=== PATIENT | female | born 1975 | race Two or more races ===

== ENCOUNTER → 2025-01-23 | Outpatient (CLI) | payer MEDICAID, SELFPAY ==
--- NOTE | 2025-01-23 11:30 | XR_ITS ---
Examination: Pelvic ultrasound, transabdominal, complete Technique: Transabdominal ultrasound of the pelvis performed using grayscale imaging Date and time of exam: January 23, 2025 1241 hours INDICATIONS: CT examination 05/20/2023 25 mm hypodense mass in the cervix FINDINGS: Uterus 9.1 cm endometrial stripe 1.1 cm No uterine mass Cervix is partially visualized secondary to bowel gas Right ovary 2.4 cm arterial flow Left ovary 2.0 cm arterial flow IMPRESSION: Limited study, recommend transvaginal pelvic sonography to diagnostically assess the cervix
== END | disposition home or self-care (01) ==
PROVIDERS: PCP Nurse Practitioner Family; Referring Provider Nurse Practitioner Family; Visit Provider Nurse Practitioner Family
DX: R10.2 Pelvic and perineal pain (principal)
CPT/HCPCS: 76856

== ENCOUNTER 2025-08-21 10:39 | Emergency (ER) | payer MEDICAID, SELFPAY ==
[2025-08-21] VITALS (7 sets, daily range): BP systolic 119–145; BP diastolic 75–85; PULSE 72–95; RESP 16–20; TEMP 36.8–37.4; O2SAT 94–100; BMI 36.9
--- NOTE | 2025-08-21 11:00 | XR_ITS ---
Examination: Pelvic ultrasound, transabdominal, complete Technique: Transabdominal ultrasound of the pelvis performed using grayscale imaging Date and time of exam: August 21, 2025, 1119 hours INDICATIONS: Postmenopausal vaginal bleeding today with pain FINDINGS: Uterus 9.8 cm endometrial stripe 0.7 cm Right ovary 2.3 cm arterial flow Left ovary 2.8 cm arterial flow, 20 x 16 x 15 mm cyst No fluid in the cul-de-sac IMPRESSION: Left ovarian simple cyst 20 x 16 x 15 mm
--- NOTE | 2025-08-21 11:02 | PD.EDRME ---
Rapid Medical Screening Exam E Arrival date/time: 08/21/25 10:39 49-year-old female with no known medical history presents to the emergency room with a chief complaint of vaginal bleeding and suprapubic abdominal pain x 3 days I have greeted and performed a focused initial assessment of this patient. A comprehensive ED assessment and evaluation of the patient, analysis of all test results, and completion of the medical decision making process will be conducted by additional ED providers. Chief Complaint: Abdominal Pain Time Seen by Provider: 08/21/25 10:56 Vital signs: Vital Signs Temperature 99.3 F 08/21/25 10:47 Pulse Rate 95 08/21/25 10:47 Respiratory Rate 18 08/21/25 10:47 Blood Pressure 135/79 H 08/21/25 10:47 Pulse Oximetry (%) 94 L 08/21/25 10:47 Oxygen Delivery Method Room Air 08/21/25 10:47 Vital signs reviewed by provider: Yes Exam: Tenderness with palpation under the umbilicus. No right lower quadrant or left lower quadrant abdominal tenderness Clear bilateral lung sounds Clinical Impression: Vaginal bleeding
[2025-08-21 11:27] LABS: Basophils # (Auto) 0.0 Thou/mm3 (0.0-0.2); Basophils % (Auto) 1 % (0-2.5); Eosinophils # (Auto) 0.4 Thou/mm3 (0.0-0.5); Eosinophils % (Auto) 7 % (0-10); Hematocrit 39.7 % (36.0-46.0); Hemoglobin 12.8 g/dL (12.0-16.0); Immature Granulocytes Auto 0.04 Thou/mm3 (0.00-0.00); Lymphocytes # (Auto) 1.5 Thou/mm3 (1.0-4.8); Lymphocytes % (Auto) 28 % (10-50); Mean Corpuscular HGB Conc 32.2 g/dl (31.0-37.0); Mean Corpuscular Hemoglobin 27.6 pg (25.0-35.0); Mean Corpuscular Volume 86 fL (80-100); Monocytes # (Auto) 0.5 Thou/mm3 (0.0-0.8); Monocytes % (Auto) 9 % (0-12); Neutrophils # (Auto) 2.9 Thou/mm3 (1.8-7.7); Neutrophils % (Auto) 55 % (37-80); Nucleated Red Blood Cell # 0.00 Thou/mm3 (0.00-0.00); Nucleated Red Blood Cell % 0 /100 WBC (0); Platelet Count 350 Thou/mm3 (140-440); RDW Standard Deviation 42.9 fL (36.4-46.3); Red Blood Count 4.63 Miln/mm3 (4.00-5.20); White Blood Count 5.3 Thou/mm3 (3.6-11.0)
[2025-08-21 11:42] LABS: Collection Type, Urine Clean Catch
[2025-08-21 11:47] LABS: Alanine Aminotransferase 20 U/L (10-49); Albumin, Serum 4.7 gm/dL (3.5-5.0); Albumin/Globulin Ratio 1.2 (1.2-2.2); Alkaline Phosphatase 102 U/L (46-116); Anion Gap 11 (7-16); Aspartate Amino Transferase 27 U/L (0-34); BUN/Creatinine Ratio 11 Ratio (12-20); Bilirubin,Total 0.5 mg/dL (0.3-1.2); Blood Urea Nitrogen 9 mg/dL (9-23); Calcium 9.1 mg/dL (8.3-10.6); Calcium (Corrected) 9.1 mg/dL (8.5-10.1); Carbon Dioxide 25.9 mMol/L (20.0-31.0); Chloride 106 mMol/L (98-107); Creatinine (Component) 0.8 mg/dL (0.6-1.3); Estimated Creatinine Clearance 87.6 mL/min (>60); Globulin 3.9 gm/dL (2.3-3.5); Glucose 99 mg/dL (74-106); Osmolality,Calculated 283 (275-295); Potassium 3.4 mMol/L (3.4-5.1); Sodium 143 mMol/L (136-145); Total Protein 8.6 gm/dL (5.7-8.2); eGFR > 60 See Note
[2025-08-21 12:02] LABS: Bilirubin,Urine Negative (Negative); Blood,Urine 2+ (Negative); Clarity,Urine Clear (Clear/Hazy); Color,Urine Colorless (Lt Yel-Yel); Culture Indicated,Urine Not Indicated; Glucose, Urine Negative (Negative); Ketones,Urine Negative (Negative); Leukocyte Esterase,Urine Negative (Negative); Nitrite,Urine Negative (Negative); PH,Urine 6.5 (5.0-7.0); Protein,Urine Negative (Neg - Trace); RBC,Urine 2 /hpf (0-3); Specific Gravity,Urine 1.005 (1.001-1.035); Squamous Epithelial Cell,Urine 3 /hpf (0-5); Urobilinogen,Urine Negative mg/dL (0.0-1.0); WBC,Urine 1 /hpf (0-5)
[2025-08-21 12:07] LABS: HCG Qualitative,Urine Negative
--- NOTE | 2025-08-21 12:51 | PC.NURSE ---
Pt came to ED for complaints of lower abdominal pain that radiates to the lower back, pain is burning sensation, 7/10 pain, denies any N/V/D. Symptoms started approx a week ago, pt stated after no period for 2 years she had her period that started yesterday, blood is small amount with clots. Pt is alert and oriented, VSS. Awating provider to see.
[2025-08-21 13:06] LABS: INR 1.0 (0.9-1.3); Partial Thromboplastin Time 29.6 Seconds (22.0-36.0); Prothrombin Time 10.9 Seconds (9.0-12.2)
--- NOTE | 2025-08-21 13:08 | EDNOTE_ITS ---
ED Abdominal Pain RME/HPI General Chief Complaint: Abdominal Pain Stated complaint: LLQ ABD PAIN RADIATING TO BACK 04/15 Time seen by provider: 08/21/25 10:56 Arrival date/time: 08/21/25 10:39 RME / HPI RME / HPI narrative: 08/21/25 10:39 49-year-old female with no known medical history presents to the emergency room with a chief complaint of vaginal bleeding and suprapubic abdominal pain x 3 days I have greeted and performed a focused initial assessment of this patient. A comprehensive ED assessment and evaluation of the patient, analysis of all test results, and completion of the medical decision making process will be conducted by additional ED providers. DR. JUAREZ MAIN ED EVALUATION 49 year old female with history of kidney stones otherwise no other stated chronic medical history presents to the ED for evaluation of pelvic pain that wraps around to her lower back beginning 1 week ago. Described as aching in sensation, rated as moderate. States the pain is noted to be worse after urinating. Accompanied by vaginal bleeding, amount is very light and spotty, that began yesterday. Denies any dysuria, hematuria, or foul odor. Denies vaginal discharge or itching. Denies any changes in bowel habits. No known modifying factors. Exam: Tenderness with palpation under the umbilicus. No right lower quadrant or left lower quadrant abdominal tenderness Clear bilateral lung sounds Impression: Vaginal bleeding Related Data Home Medications ?Medication ?Instructions ?Recorded ?Confirmed Nitrofurantoin Macrocrystals SR * 100 mg PO BID #0 cap s 06/15/17 (MACROBID *) dicyclomine 10 mg capsule (Bentyl) 10 mg PO BID PRN AB DOMINAL PAIN #0 06/15/17 caps Previous Rx's ?Medication ?Instructions ?Recorded ibuprofen 800 mg tablet 800 mg PO TID PRN pain #30 t abs 05/20/23 tamsulosin 0.4 mg capsule (Flomax) 0.4 mg PO QDAY #10 caps 05/20/23 hydrocodone 5 mg-acetaminophen 300 1 tab PO QDAY #5 ta bs 08/21/25 mg tablet ibuprofen 800 mg tablet 800 mg PO Q8H PRN pain #14 t abs 08/21/25 naloxone 4 mg/actuation nasal 4 mg intranasal Q2M PRN opioid 08/21/25 spray (Narcan) overdose #2 ea tamsulosin 0.4 mg capsule 0.4 mg PO QDAY #14 caps 08/06 02/28 Allergies Allergy/AdvReac Type Severity Reaction Status Date / Time No Known Allergies Allergy Verified 08/21/25 10:44 Review of Systems Review of Systems Systems Reviewed: All systems reviewed, normal except as documented Past Medical History Past Medical History CARDIAC: Positive Cardiac Disorders and Hypercholesterolemia GASTROINTESTINAL: Positive Gastrointestinal Disorders (gastris, H. pylori) GENITOURINARY: Positive Kidney Stones MUSCULOSKELETAL: Positive Musculoskeletal Disorders, Rheumatoid Arthritis and Fractures ENDOCRINE: Positive Diabetes Mellitus Type 2 (pre diabetic) Surgical History SURGICAL: Positive of Shoulder Sx (right arm) and Section Social History SMOKING STATUS: Never smoker ED Exam Narrative Physical exam: GENERAL APPEARANCE: alert and oriented x 4, well-developed, well-nourished, no acute distress HEENT: Normocephalic, atraumatic; pupils equal, round, reactive to light; EOMI; mucous membranes pink, moist; oropharynx clear NECK: Supple LUNGS: CTABL; no wheezes, no rales, no rhonchi HEART: Regular rate, regular rhythm; normal S1, S2; no murmurs ABDOMEN: non distended; normal BS; soft, mild suprapubic tenderness, no guarding, no rebound; no masses, no organomegaly, no hernia BACK: no CVA tenderness EXTREMITIES: atraumatic; no edema NEUROLOGIC: awake; alert and oriented x4; cranial nerves II-XII grossly intact; no focal sensory or motor deficits PSYCHIATRIC: appropriate mood and affect SKIN: warm, dry, normal color; no rashes Course Quality Measures none Orders Category Date Time Status CT Screening NOW Care 08/21/25 15:[address] abdomen pelvis w con Stat Exams 08/21/25 15:07 Completed US pelvic complete Stat Exams 08/21/25 11:00 Completed CBC Stat Lab 08/21/25 11:10 Completed CMP [Comprehensive Metabolic Panel] Stat Lab 08/21/25 11:10 Completed HCG Qualitative,Urine Stat Lab 08/21/25 11:30 Completed PT [Prothrombin Time with INR] Stat Lab 08/21/25 11:10 Completed PTT [Partial Thromboplastin Time] Stat Lab 08/21/25 11:10 Completed UA, C/S IF [Urinalysis, C/S if Indicated] Stat Lab 08/21/25 11:30 Completed HYDROcodone*/APAP 5/325 [Gorin 5/325] Med 08/21/25 15:07 Discontinued 1 tab PO X1 ONE Ketorolac Inj [Toradol Inj] Med 08/21/25 15:07 Discontinued 30 mg IM X1 ONE Vital Signs Vital signs: Vital Signs Temperature 99.3 F 08/21/25 10:47 Pulse Rate 95 08/21/25 10:47 Respiratory Rate 18 08/21/25 10:47 Blood Pressure 135/79 H 08/21/25 10:47 Pulse Oximetry (%) 94 L 08/21/25 10:47 Oxygen Delivery Method Room Air 08/21/25 10:47 Pulse ox is 94% on room air which is adequate. Abdominal Pain MDM MDM Narrative MDM Narrative:: ILashonda, marina scribing for and in the presence of Dr. Juarez. 1800: Care signed out to Dr. Wade, pending CT abdomen/pelvis and final disposition. Patient data External records reviewed:: [facility] previous records Clinical information provided by:: patient Social determinants that could affect healthcare access:: none Patient has the following chronic illnesses:: None reported How is presenting disease/condition affected by chronic disease/condition?: no chronic disease Evaluation data The following diagnostics were reviewed and interpreted by me:: lab results and radiology exam(s) Lab and/or radiology exams considered but not ordered:: None Interpretation Summary: Ordering Physician: Lio Blair Date of Service: 08/21/25 Procedure(s): US pelvic complete Accession Number(s): [id number] cc: Lio Blair; Julián Stanley MD; Prem Kelly MD~ Examination: Pelvic ultrasound, transabdominal, complete Technique: Transabdominal ultrasound of the pelvis performed using grayscale imaging Date and time of exam: August 21, 2025, 1119 hours INDICATIONS: Postmenopausal vaginal bleeding today with pain FINDINGS: Uterus 9.8 cm endometrial stripe 0.7 cm Right ovary 2.3 cm arterial flow Left ovary 2.8 cm arterial flow, 20 x 16 x 15 mm cyst No fluid in the cul-de-sac IMPRESSION: Left ovarian simple cyst 20 x 16 x 15 mm Dictated By: Julián Stanley MD Signed By: <Electronically signed by Julián Stanley MD in [place]> 08/21/25 1141 Medications / Prescriptions Medications or Prescriptions considered but not ordered:: None Medication administrations:: Medication Administration History Discontinued Medications Hydrocodone Bitart/Acetaminophen (Hydrocodone/Apap 5/325 Tablet) 1 tab PO X1 ONE Stop: 08/21/25 15:08 Last Admin: 08/21/25 15:27 Dose: 1 tab Documented By: MARK Ketorolac Tromethamine (Ketorolac Inj 30 Mg/Ml Vial) 30 mg IM X1 ONE Stop: 08/21/25 15:08 Last Admin: 08/21/25 15:28 Dose: 30 mg Documented By: MARK See above Consultations Consultation(s) initiated? (list below): No Diagnosis Differential diagnosis abdominal pain: abdominal pain, calculus of kidney and other (UTI, kidney stone) Most likely diagnosis given after review of the tests above:: Pelvic pain Admission Indicated Admission indicated?: not indicated Explain why admission is indicated or not indicated:: Signed out pending final disposition Admission Request Was there a request for admission?: No Disposition Plan Disposition Plan: other (specify) (Care signed out to Dr. Wade ) Discharge Plan Prescriptions/Referrals Prescriptions/Med Rec: New tamsulosin 0.4 mg capsule 0.4 mg PO QDAY Qty: 14 0RF ibuprofen 800 mg tablet 800 mg PO Q8H PRN (Reason: pain) Qty: 14 0RF Rx Instructions: please take with food hydrocodone-acetaminophen 5-300 mg tablet 1 tab PO QDAY MDD 1 Qty: 5 0RF naloxone [Narcan] 4 mg/actuation spray,non-aerosol 4 mg intranasal Q2M PRN (Reason: opioid overdose) Qty: 2 0RF Rx Instructions: spray 1 dose into ONE nostril; alternate nostrils w each dose until help arrives No Action Nitrofurantoin Macrocrystals SR * (MACROBID *) 100 MG capsule 100 mg PO BID Qty: 0 dicyclomine [Bentyl] 10 MG capsule 10 mg PO BID PRN (Reason: ABDOMINAL PAIN) Qty: 0 tamsulosin [Flomax] 0.4 mg capsule 0.4 mg PO QDAY Qty: 10 0RF ibuprofen 800 mg tablet 800 mg PO TID PRN (Reason: pain) Qty: 30 0RF Referrals: Robin (PCP)Prem MD [Primary Care Provider, Family Practice] - In 1 week Problem List Clinical Impression: Pelvic pain Patient/Caregiver Discharge Instructions Print Language: Japanese
--- NOTE | 2025-08-21 15:07 | XR_ITS ---
Examination: CT abdomen with intravenous contrast CT pelvis with intravenous contrast 2-D coronal reconstructions 2-D sagittal reconstructions Date and time of exam: August 21, 2025, 1809 hours, comparison 05/20/2023 INDICATIONS: Lower abdominal pain pelvic pain onset today., History kidney stones CTDI: vol (mGy) 10.9 DLP: (mGycm) 631 Technique: Multiple axial sections of the abdomen and pelvis have been obtained. 64 slice high-resolution scanner used. 3 mm axial sections have been obtained, post intravenous injection 60 cc Isovue 370 2-D sagittal, coronal reconstructions obtained. Low dose protocols were performed. One or more of the following dose reduction techniques were used; automated exposure control, adjustment of the mA and/or KV according to patient size, use of iterative reconstruction technique. Findings: Abnormally prominent right hilum axial image 1 Trace pericardial effusion No visualized liver lesions, hepatomegaly 19 cm No gallstones Numerous splenic lesions poorly visualized No pancreatic or adrenal mass No common hepatic or common bile duct stones 13 mm stone in the left renal pelvis with minimal left hydronephrosis 2 mm calculus lower pole right kidney Aorta normal size Normal appendix No bowel obstruction Anteverted uterus No bladder mass or bladder calculi Moderate osteopenia 3 mm calcified disc L5-S1 IMPRESSION: Prominent right hilum, recommend PA lateral chest follow-up Numerous poorly defined splenic lesions, differential would include metastatic disease, recommend hepatobiliary sonography follow-up 13 mm calculus in the left renal pelvis with minimal left hydronephrosis, no ureteral calculi No definite pelvic mass but given the patient's history, consider pelvic sonography follow-up
[2025-08-21] MEDS: HYDROcodone/APAP 5/325 TABLET 1 TAB PO (15:27)
[2025-08-21] MEDS: KETOROLAC INJ 30 MG/ML VIAL IM (15:28)
--- NOTE | 2025-08-21 18:19 | EDNOTE_ITS ---
Emergency Room Addendum <Patrica Stanley - Last Filed: 08/21/25 20:33> Addendum Narrative: 1800: Care assumed from Dr. Juarez, the previous shift emergency physician. Past medical, surgical, social and family history reviewed. Vitals and home medications reviewed. Results and treatment plan discussed. I will assume the care of the patient at this time and will follow the patient. Please refer to the emergency department record for history and examination from initial visit. Patient is a 49-year-old female is in the emergency department with concerns for lower abdominal pain. Prior provider evaluated patient. Ordered labs, pelvic ultrasound as well as CT abdomen pelvis. Concern for ovarian torsion, urinary tract infection, pancreatitis, urolithiasis among others. Labs without leukocytosis, no left shift no significant acute metabolic disturbances urinalysis 2+ blood, nitrite negative leuk esterase -, 1 white blood cell 3 squamous cells no bacteria less likely infected. Pelvic ultrasound with Left ovarian simple cyst 20 x [address] abdomen pelvis performed with contrast notable for trace pericardial effusion, patient has hepatomegaly and no gallstones, 13 mm stone in the left renal pelvis with minimal left hydronephrosis, 2 mm calculus lower pole of the right kidney moderate osteopenia in the lumbar sacral spine. Otherwise no other abnormalities. RADIOLOGY RESULTS: [facility] Report Signed Patient: SHELLY ESCALERA. Record#: [id number] Birthdate: 1975 Age/Sex: 49 / F Location: [facility] Attending Dr: Ordering Physician: Bessie Juarez MD Date of Service: 08/21/25 Procedure(s): CT abdomen pelvis w con Accession Number(s): [id number] cc: Julián Stanley MD; Prem Kelly MD; Bessie Juarez MD~ Examination: CT abdomen with intravenous contrast CT pelvis with intravenous contrast 2-D coronal reconstructions 2-D sagittal reconstructions Date and time of exam: August 21, 2025, 1809 hours, comparison 05/20/2023 INDICATIONS: Lower abdominal pain pelvic pain onset today., History kidney stones CTDI: vol (mGy) 10.9 DLP: (mGycm) 631 Technique: Multiple axial sections of the abdomen and pelvis have been obtained. 64 slice high-resolution scanner used. 3 mm axial sections have been obtained, post intravenous injection 60 cc Isovue 370 2-D sagittal, coronal reconstructions obtained. Low dose protocols were performed. One or more of the following dose reduction techniques were used; automated exposure control, adjustment of the mA and/or KV according to patient size, use of iterative reconstruction technique. Findings: Abnormally prominent right hilum axial image 1 Trace pericardial effusion No visualized liver lesions, hepatomegaly 19 cm No gallstones Numerous splenic lesions poorly visualized No pancreatic or adrenal mass No common hepatic or common bile duct stones 13 mm stone in the left renal pelvis with minimal left hydronephrosis 2 mm calculus lower pole right kidney Aorta normal size Normal appendix No bowel obstruction Anteverted uterus No bladder mass or bladder calculi Moderate osteopenia 3 mm calcified disc L5-S1 IMPRESSION: Prominent right hilum, recommend PA lateral chest follow-up Numerous poorly defined splenic lesions, differential would include metastatic disease, recommend hepatobiliary sonography follow-up 13 mm calculus in the left renal pelvis with minimal left hydronephrosis, no ureteral calculi No definite pelvic mass but given the patient's history, consider pelvic sonography follow-up Dictated By: Julián Stanley MD Signed By: <Electronically signed by Julián Stanley MD in [place]> 08/21/25 1842 <Rosaline Wade MD - Last Filed: 08/21/25 20:37> Addendum Narrative: 1800: Care assumed from Dr. Juarez, the previous shift emergency physician. Past medical, surgical, social and family history reviewed. Vitals and home medications reviewed. Results and treatment plan discussed. I will assume the care of the patient at this time and will follow the patient. Please refer to the emergency department record for history and examination from initial visit. Patient is a 49-year-old female is in the emergency department with concerns for lower abdominal pain. Prior provider evaluated patient. Ordered labs, pelvic ultrasound as well as CT abdomen pelvis. Concern for ovarian torsion, urinary tract infection, pancreatitis, urolithiasis among others. Labs without leukocytosis, no left shift no significant acute metabolic disturbances urinalysis 2+ blood, nitrite negative leuk esterase -, 1 white blood cell 3 squamous cells no bacteria less likely infected. Pelvic ultrasound with Left ovarian simple cyst 20 x [address] abdomen pelvis performed with contrast notable for trace pericardial effusion, patient has hepatomegaly and no gallstones, 13 mm stone in the left renal pelvis with minimal left hydronephrosis, 2 mm calculus lower pole of the right kidney moderate osteopenia in the lumbar sacral spine. Otherwise no other abnormalities. On my evaluation patient hemodynamically stable not distressed symptoms completely resolved, abdomen soft right-sided nontender, no flank tenderness palpation. I discussed with the patient states that she has had kidney stones since January, she was referred to a urologist here in [facility] as well as 1 in [place]. States that she was not able to establish care with a urologist in [place] secondary to difficulties with obtaining a ride however states that she does have a ride to that specialist now. She does see a urologist here in [place] she believes its Dr. Toney . I offered to initiate the process to transfer the patient to a facility that has urology capabilities given patient's 13 mm stone however patient states that since she has a urologist she feels comfortable contacting her urologist to get an appointment to be seen within the next few days for management of her large stone. Patient states that if her urologist is not able to see her that she will follow-up with the referral that she has with [place]. Advised patient that it is very important that she return immediately if she develops a fever, nausea vomiting, worsening pain or any other symptom of concern as she has a large stone and can cause an obstructive uropathy which puts her kidneys at risk and is an emergency. Patient states that she understood and would return immediately if she had any symptom of concern. Patient's blood 1 at bedside in agreement. Given patient without any evidence of renal dysfunction, urinalysis without evidence of infection, and patient has no good follow-up plan with her urologist will discharge home close return precautions. All questions answered. RADIOLOGY RESULTS: [facility] Report Signed Patient: SHELLY ESCALERA. Record#: [id number] Birthdate: 1975 Age/Sex: 49 / F Location: [facility] Attending Dr: Ordering Physician: Bessie Juarez MD Date of Service: 08/21/25 Procedure(s): CT abdomen pelvis w con Accession Number(s): [id number] cc: Julián Stanley MD; Prem Kelly MD; Bessie Juarez MD~ Examination: CT abdomen with intravenous contrast CT pelvis with intravenous contrast 2-D coronal reconstructions 2-D sagittal reconstructions Date and time of exam: August 21, 2025, 1809 hours, comparison 05/20/2023 INDICATIONS: Lower abdominal pain pelvic pain onset today., History kidney stones CTDI: vol (mGy) 10.9 DLP: (mGycm) 631 Technique: Multiple axial sections of the abdomen and pelvis have been obtained. 64 slice high-resolution scanner used. 3 mm axial sections have been obtained, post intravenous injection 60 cc Isovue 370 2-D sagittal, coronal reconstructions obtained. Low dose protocols were performed. One or more of the following dose reduction techniques were used; automated exposure control, adjustment of the mA and/or KV according to patient size, use of iterative reconstruction technique. Findings: Abnormally prominent right hilum axial image 1 Trace pericardial effusion No visualized liver lesions, hepatomegaly 19 cm No gallstones Numerous splenic lesions poorly visualized No pancreatic or adrenal mass No common hepatic or common bile duct stones 13 mm stone in the left renal pelvis with minimal left hydronephrosis 2 mm calculus lower pole right kidney Aorta normal size Normal appendix No bowel obstruction Anteverted uterus No bladder mass or bladder calculi Moderate osteopenia 3 mm calcified disc L5-S1 IMPRESSION: Prominent right hilum, recommend PA lateral chest follow-up Numerous poorly defined splenic lesions, differential would include metastatic disease, recommend hepatobiliary sonography follow-up 13 mm calculus in the left renal pelvis with minimal left hydronephrosis, no ureteral calculi No definite pelvic mass but given the patient's history, consider pelvic sonography follow-up Dictated By: Julián Stanley MD Signed By: <Electronically signed by Julián Stanley MD in [place]> 08/21/25 5701
== END 2025-08-21 20:48 | disposition home or self-care (01) ==
PROVIDERS: Nurse Practitioner Family; Emergency Provider Emergency Medicine; PCP Family Medicine
DX: N83.292 Other ovarian cyst, left side (principal); N13.2 Hydronephrosis with renal and ureteral calculous obstruction; M85.88 Other specified disorders of bone density and structure, other site; I31.39 Other pericardial effusion (noninflammatory); R16.0 Hepatomegaly, not elsewhere classified
CPT/HCPCS: 36415; 74177; 76856; 80053; 81001; 81025; 85025; 85610; 85730; 96372; 99284; A4649; J1885; Q9967; A9270